=== PATIENT | female | born 1935 | race Caucasian/White ===

== ENCOUNTER 2020-12-09 06:00 | Outpatient (RCR) | payer MEDICARE, OTHER, SELFPAY | END 2020-12-18 23:59 | disposition home or self-care (01) | LOC: GOT 06:00 | PROVIDERS: PCP Nurse Practitioner; Referring Provider Podiatrist Foot & Ankle Surgery; Visit Provider Podiatrist Foot & Ankle Surgery | DX: I89.0 Lymphedema, not elsewhere classified (principal) | CPT/HCPCS: 97140; 97166 ==

== ENCOUNTER 2020-12-19 06:00 | Outpatient (RCR) | payer MEDICARE, OTHER, SELFPAY | END 2021-01-18 23:59 | disposition home or self-care (01) | LOC: GOT 06:00 | PROVIDERS: PCP Nurse Practitioner; Visit Provider Podiatrist Foot & Ankle Surgery | DX: I89.0 Lymphedema, not elsewhere classified (principal) | CPT/HCPCS: 97140 ==

== ENCOUNTER → 2024-05-21 13:39 | Outpatient (BNVA) | payer MEDICARE, SELFPAY | PROVIDERS: PCP Nurse Practitioner; Visit Provider Nurse Practitioner Family | DX: R30.0 Dysuria (principal) | CPT/HCPCS: 81000; 87086 ==

== ENCOUNTER → 2024-07-11 11:30 | Outpatient (BNVA) | payer MEDICARE, SELFPAY | PROVIDERS: PCP Nurse Practitioner; Visit Provider Nurse Practitioner Family | DX: Z51.89 Encounter for other specified aftercare (principal) | CPT/HCPCS: 80053; 85025; 87070 ==

== ENCOUNTER → 2024-07-13 08:50 | Outpatient (BNVA) | payer MEDICARE, SELFPAY | PROVIDERS: PCP Nurse Practitioner; Visit Provider Thoracic Surgery (Cardiothoracic Vascular Surgery) | DX: I96 Gangrene, not elsewhere classified (principal); L89.154 Pressure ulcer of sacral region, stage 4 | CPT/HCPCS: 11043; 99203; A6212 ==

== ENCOUNTER → 2024-07-20 10:24 | Outpatient (BNVA) | payer MEDICARE, SELFPAY | PROVIDERS: PCP Nurse Practitioner; Visit Provider Thoracic Surgery (Cardiothoracic Vascular Surgery) | DX: I96 Gangrene, not elsewhere classified (principal); L89.154 Pressure ulcer of sacral region, stage 4; I25.10 Atherosclerotic heart disease of native coronary artery without angina pectoris; Z79.899 Other long term (current) drug therapy | CPT/HCPCS: 11043; 81000; 87086; A6212 ==

== ENCOUNTER → 2024-07-26 08:54 | Outpatient (BNVA) | payer MEDICARE, SELFPAY | PROVIDERS: PCP Nurse Practitioner; Visit Provider Thoracic Surgery (Cardiothoracic Vascular Surgery) | DX: I96 Gangrene, not elsewhere classified (principal); L89.154 Pressure ulcer of sacral region, stage 4 | CPT/HCPCS: 11043; A6213 ==

== ENCOUNTER → 2024-08-10 08:50 | Outpatient (BNVA) | payer MEDICARE, SELFPAY | PROVIDERS: PCP Nurse Practitioner; Visit Provider Nurse Practitioner Family | DX: S31.000A Unspecified open wound of lower back and pelvis without penetration into retroperitoneum, initial encounter (principal); X58.XXXA Exposure to other specified factors, initial encounter | CPT/HCPCS: 87070; 87075; 87077; 87184; 87205 ==

== ENCOUNTER → 2024-09-12 11:25 | Outpatient (BNVA) | payer MEDICARE, SELFPAY | PROVIDERS: PCP Nurse Practitioner; Visit Provider Family Medicine | DX: N32.0 Bladder-neck obstruction (principal); N13.4 Hydroureter; N13.30 Unspecified hydronephrosis; N30.00 Acute cystitis without hematuria | CPT/HCPCS: 81000; 87086 ==

== ENCOUNTER 2024-09-14 08:21 | Inpatient (IN) | payer MEDICARE, SELFPAY ==
--- OUTSIDE RECORDS SUMMARY | 2013-04-03 02:04 | XMS_ITS | Continuity of Care Document ---
Author Organization [facility] Address [address] [place] [address] Phone Care Team Providers Care Architectural Renderer Name Role Phone Ede Bedoya MD Unavailable Unavailable Allergies, Adverse Reactions, Alerts Substance Reaction Status Criticality No Known Drug Allergies Active No I nformation Medications Medication Instructions Dosage Effective Dates (start - stop) Status Comments atenolol 25 mg Tab take 1 tablet (25MG) by oral route every day 25 MG - Active nifedipine ER 30 mg 24 hr Tab take 1 tablet (30MG) by oral route every day 30 MG - Active clonidine 0.1 mg tablet take 1 tablet (0.1MG) by oral route every day at bedtime - Active lorazepam 0.5 mg Tab take 1 Tablet (0.5MG) by oral route 3 times every day as needed 0.5 MG - Active Tylenol-Codeine #3 300 mg-30 mg Tab take 1 tablet by oral route every 6 hours as needed - Active aspirin 81 mg Tab take 1 tablet (81MG) by oral route every day 81 MG - Active Calcium 600 + D(3) 600 mg-400 unit Tab Take 1 tablet twice aday. - Active atenolol 25 mg Tab take 1 tablet (25MG) by oral route every day 25 MG - No Longer Active Procedures Procedure Date OFFICE/OUTPATIENT VISIT, EST OFFICE/OUTPATIENT VISIT, EST OFFICE/OUTPATIENT VISIT, EST URINALYSIS, AUTO, W/O SCOPE OFFICE/OUTPATIENT VISIT, EST PNEUMOCOCCAL VACCINE OFFICE/OUTPATIENT VISIT, EST OFFICE/OUTPATIENT VISIT, EST OFFICE/OUTPATIENT VISIT, EST OFFICE/OUTPATIENT VISIT, EST OFFICE/OUTPATIENT VISIT, EST OFFICE/OUTPATIENT VISIT, EST OFFICE/OUTPATIENT VISIT, EST OFFICE/OUTPATIENT VISIT, EST OFFICE/OUTPATIENT VISIT, EST BIOPSY OF UTERUS LINING OFFICE/OUTPATIENT VISIT, EST OFFICE/OUTPATIENT VISIT, EST OFFICE/OUTPATIENT VISIT, EST OFFICE/OUTPATIENT VISIT, EST BIOPSY OF UTERUS LINING OFFICE/OUTPATIENT VISIT, EST OFFICE/OUTPATIENT VISIT, EST OFFICE/OUTPATIENT VISIT, EST OFFICE/OUTPATIENT VISIT, EST OFFICE/OUTPATIENT VISIT, EST OFFICE/OUTPATIENT VISIT, EST OFFICE/OUTPATIENT VISIT, EST Advance Directives Directive Yes / No Effective Date File Name No Information Encounters Encounter Description Practice Location Reason(s) For Visit Diagnoses Date Provider Providers Copied on Encounter [facility], [address] [place] [address], [facility], tel:[phone] [facility] No Information 4 Elke Mera. [address] [place] [address], [facility], . tel:[phone] [facility], [address] [place] [address], [address] [place] [address] tel:[phone] [facility] No Information 2 3 Elke Mera. [address] [place] [address], [address] [place] [address]. tel:[phone] [facility], [address] [place] [address], [facility], tel:[phone] [facility] No Information 3 Elke Mera. [address] [place] [address], [facility], . tel:[phone] OFFICE/OUTPA TIENT VISIT, EST [facility], [address] [place], [place] [address], [facility], tel:[phone] [facility] night sweats (chief complaint)polyu ryan (chief complaint) PolyuriaNight sweats 3 Elke Mera. [address] [place] [address], [facility], [place]. tel:[phone] OFFICE/OUTPA TIENT VISIT, EST [facility], [address] [place] [address], [facility], [place] tel:[phone] [facility] Leg edema (chief complaint)Follo w-up with UTI infection (chief complaint) UTI (lower urinary tract infection)Hype rtension, UnspecifiedEde maKidney stones 3 Elke Mera. [address] [place] [address], [facility], [place]. tel:[phone] OFFICE/OUTPA TIENT VISIT, EST [facility], [address] [place], [place] [address], [facility], [place] tel:[phone] [facility] urinary frequency (chief complaint) Dysuria Fe 3 Elke Mera. [address] [place] [address], [facility], [place]. tel:[phone] OFFICE/OUTPA TIENT VISIT, EST [facility], [address] [place], [place] [address]n [place], [place], [facility], [place] tel:[phone] [facility] BP check (chief complaint)abdom inal pain (chief complaint). (chief complaint) Hypertension, Unspecified 3 Elke Mera. [address] [place] [address], [facility], [place]. tel:[phone] [facility], [address] [place], [place] [address] [place], [place], [facility], [place] tel:[phone] [facility] No Information 3 Elke Mera. [address] [place] [address], [facility], [place]. tel:[phone] OFFICE/OUTPA TIENT VISIT, EST [facility], [address] [place], [place] [address], [facility], [place] tel:[phone] [facility] preop exam for GBx (chief complaint) Preoperative examinationCho lelithiasis 2 Elke Mera. [address] [place] [address], [facility], [place]. tel:[phone] OFFICE/OUTPA TIENT VISIT, EST [facility], [address] [place] [address], [facility], [place] tel:[phone] [facility] axillary karen cyst infected? (chief complaint) Sebaceous cystAnxiety Disorder NOS 2-201 2 Elke Mera. [address] [place] [address], [facility], [place]. tel:[phone] [facility], [address] [place] [address], [facility], [place] tel:[phone] [facility] Abnormal finding on mammography 2 Elke Mera. [address] [place] [address], [facility], [place]. tel:[phone] OFFICE/OUTPA TIENT VISIT, EST [facility], [address] [place] [address], [facility], [place] tel:[phone] [facility] BP check (chief complaint)PE (chief complaint) Hypertension, UnspecifiedPul monary EmbolusSkin lesion of face 0 2 Elke Mera. [address] [place] [address], [facility], [place]. tel:[phone] OFFICE/OUTPA TIENT VISIT, EST [facility], [address] [place], [place] [address], [address], [place] tel:[phone] [facility] hypertension f/u (chief complaint)diarr hea (chief complaint)recen t ED visit and subsequent brief hospitalization (chief complaint) Chest pain 2 Elke Mera. [address] [place] [address], [facility], . tel:[phone] OFFICE/OUTPA TIENT VISIT, EST [facility], [address] [place], [place] [address]mary [place], [facility], [place] tel:[phone] [facility] nerves (chief complaint)gas (chief complaint)nevus on neck itching (chief complaint) Hypertension, UnspecifiedAnx ietyPulmonary EmbolusSeborrh eic keratosis 2 Elke Mera. [address] [place] [address], [facility], [place]. tel:[phone] OFFICE/OUTPA TIENT VISIT, EST [facility], [address] [place] [address], [facility], [place] tel:[phone] [facility] No Information 1 Elke Mera. [address] [place] [address], [facility], . tel:[phone] OFFICE/OUTPA TIENT VISIT, EST [facility], [address] [place], [place] [address], [place], [facility], [place] tel:[phone] [facility] No Information 1 Elke Mera. [address] [place] [address], [facility], [place]. tel:[phone] OFFICE/OUTPA TIENT VISIT, EST [facility], [address] [place], [place] [address]ffen [place], [facility], [place] tel:[phone] [facility] No Information 1 Kaley Pacheco. [facility], [address], [place], [place], [facility], [place]. tel: [phone] OFFICE/OUTPA TIENT VISIT, EST [facility], [address], [place], [place], [facility], [place] tel:[phone] [facility] No Information 1 Kaley Pacheco. [facility], [address], [place], [facility], [place]. tel: [phone] OFFICE/OUTPA TIENT VISIT, EST [facility], [address], [place], [facility], [place] tel:[phone] [facility] No Information 1 Elke Mera. [address] [place] [address], [facility], . tel: [phone] OFFICE/OUTPA TIENT VISIT, EST [facility], [place], [facility], [place] tel:[phone] [facility] No Information 1 Elke Mera. [address] [place] [address], [facility], [place]. tel: [phone] OFFICE/OUTPA TIENT VISIT, EST [facility], [facility] [address] [place], [facility], [place] tel:[phone] [facility] No Information 1 Ebenezer Cox. [address] [place] [address], [facility], [place]. tel: [phone] [facility], [address] [place], [facility], [place] tel:[phone] [facility] No Information 1 Elke Mera. [address] [place] [address], [facility], [place]. tel: [phone] OFFICE/OUTPA TIENT VISIT, EST [facility], [address] [place], [place] [address]mary [place], [facility], [place] tel: [phone] [facility] No Information Fe-0 9 1 Ebenezer Cox. [address] [place] [address], [facility], . tel: [phone] OFFICE/OUTPA TIENT VISIT, EST [facility], [address] [place], [place] [address], [facility], [place] tel: [phone] [facility] No Information Jan-0 4201 0 Elke Mera. [address] [place] [address], [facility], . tel: [phone] OFFICE/OUTPA TIENT VISIT, EST [facility], [address] [place] [address], [facility], tel: [phone] [facility] No Information Dec-0 7201 0 Elke Mera. [address] [place] [address], [facility], [place]. tel: [phone] OFFICE/OUTPA TIENT VISIT, EST [facility], [address] [place], [place] [address], [facility], [place] tel: [phone] [facility] No Information Nov-0 9 0 Elke Mera. [address] [place] [address], [facility], . tel: [phone] OFFICE/OUTPA TIENT VISIT, EST [facility], [address] [place], [place] [address], [facility], [place] tel: [phone] [facility] No Information 2 6 0 Elke Mera. [address] [place] [address], [facility], . tel: [phone] OFFICE/OUTPA TIENT VISIT, EST [facility], [address] [place], [place] [address]aliy[place], [facility], [place] tel:[phone] [facility] No Information 0 Elke Ede. [address] [place] [address], [address] [place] [address]. tel: [phone] OFFICE/OUTPA TIENT VISIT, EST [facility], [address] [place] [address], [address] [place] [address] tel:[phone] [facility] No Information 0 Elke Mera. [address] [place] [address], [facility], . tel: [phone] OFFICE/OUTPA TIENT VISIT, EST [facility], [address] [place] [address], [facility], tel:[phone] [facility] No Information 0 9 Elke Mera. [address] [place] [address], [address] [place] [address]. tel: [phone] Family History Family Member Type Diagnosis Age At Onset No Information Immunizations Vaccine Date Status Comments Pneumo (2 yrs or older)(PPV) administered Source: New Immunization Record Payers Payer name Insurance type Covered green party ID Authoralkoa andrew(s) [facility] [place] [id number] Social History Type Description Quantity Date Captured Comments Sex Female Smoking Status No Information Chief Complaint And Reason For Visit No Information Reason For Referral Reason For Referral No Information Plan Of Treatment Date Type Action Status Goal DEXA Scan. Due on 3 due Goal Td vaccine. Due on 14 due Goal Sigmoidoscopy. Due on due Goal Colonoscopy. Due on 013 due Goal Influenza vaccine. Due on due Goal Mammogram. Due on 3 due Goal FOBT. Due on due Goal Lipid Panel. Due on 013 due Goal GRIP BOSS exam. Due on due Referral Referred To: [facility] [id number] Ordered: Referral: [facility] [id number]. Consult. ordered Referral Ordered: Referral: [facility] urology clinic. Consult. ordered Referral Ordered: MAMMOGRAM, ONE BREAST R ordered Referral Ordered: Referral: [facility]. ordered History Of Present Illness Encounter Date Complaint History Of Prese nt Illness No Information Functional Status Date Functional Assessmen t No Information Instructions Date Instruction Additional Infor mation No Information Assessments Type Assessment Date No Information Patient Care Teams Name Effective Dates (start - stop) Status Members No Information
--- OUTSIDE RECORDS SUMMARY | 2023-05-24 06:00 | XMS_ITS ---
Author Organization [facility] Address [address] [place] [address] Care Team Providers Care Presidential Helicopter Crew Chief Name Role Phone Brenden Dominguez Primary Care Provider BRENDEN DOMINGUEZ Unavailable Unavailable REASON FOR VISIT Annual Wellness Visit Encounters Encounter Location Date Provider Diagnosis [address] [place] [address] 05/24/2023 Brenden Dominguez Plan Of Treatment No Information Progress Notes * Judy APPLE MDOB: [birth year] (88 yo F)Acc No.[id number]:05/24/2023 Progress Note Patient: Judy VENEGAS Provider: Elena Dominguez MD :1935 A ge:87 Y S ex:Female Date:05/24/2023 Address:[address] [place], [place] [id number] Subjective: * Chief Complaints: * 1 . Annual Wellness Visit. * Active Problem List Z85.3 History of breast ca ncer in female Modified On:05/18/2022/U Status:confirmed I10 Essential hypertensi on Modified On:07/14/2022/U Status:confirmed E04.1 Thyroid nodule Modified On:05/18/2022/U Status:confirmed Z86.010 History of adenomato us polyp of colon Modified On:05/18/2022/U Status:confirmed E78.2 Mixed hyperlipidemia Modified On:05/18/2022/U Status:confirmed K57.10 Diverticulosis of sm all intestine without perforation or abscess without bleeding Modified On:07/14/2022/U Status:confirmed Z90.12 Hx of left mastectom y Modified On:05/19/2022/U Status:confirmed R18.8 Other ascites Modified On:06/29/2022U Status:confirmed E11.65 Type 2 diabetes mekhi itus with hyperglycemia, without long-term current use of insulin Modified On:06/15/2022/U Status:confirmed I87.2 Stasis dermatitis of both legs Modified On:08/31/2022U Status:confirmed R60.0 Bilateral lower extr emity edema Modified On:08/31/2022U Status:confirmed * Medical History: * Ocular Surgical History: Objective: * Vitals: Assessment: Plan: * Treatment: * Billing Information: * Visit Code: * Procedure Codes: Care Plan Details* * Electronic signature of Estrella Dominguez MD on 09/14/2024 at 08:27 AM CDT Sign off status: Pending * Provider: Elena Dominguez MD Date: 0 05/24/2023 Generated for Deric lin/Castillo/Sannaitting on: 0 09/14/2024 08:27 AM CDT
[2024-09-14] VITALS (49 sets, daily range): BP systolic 92–116; BP diastolic 50–88; PULSE 63–97; RESP 12–33; TEMP 36.7–36.8; O2SAT 93–100; BMI 25.4; BMI 19.8
--- OUTSIDE RECORDS SUMMARY | 2024-09-14 08:27 | XMS_ITS | Patient Health Record ---
Author Organization [facility] Address [address] [place] [address] Care Team Providers Care Dairy Bacteriologist Name Role Phone Brenden Dominguez Primary Care Provider BRENDEN DOMINGUEZ Unavailable Unavailable Allergies Allergen (clinical drug ingredient) Drug/Non Drug Allergy documented on EMR Reaction Allergy Type Onset Date Status No Known Drug Allergy Unknown Drug Allergy Active Reason For Referral No Information Medications Medication SIG (Take, Route, Frequency, Duration) Notes Start Date End Date Status Vitamin C 500 MG 4 capsules Orally On ce a day Active Biotin 5 MG 1 capsule Orally Onc e a day Active Timolol Hemihydrate 0.25 % 1 drop into affected eye Ophthalmic Once a day Active Atorvastatin Calcium 40 MG TAKE ONE TABLET BY MOUTH ONCE DAILY Active Vitamin B Complex - as directed Orally Active Vitamin D3 25 MCG (1000 UT) 1 tablet Orally Once a day Active Bactrim 400-80 MG 1 tablet Orally Once a day Not-Taking Pantoprazole Sodium 40 MG 1 tablet Orall y Once a day for 30 day(s) 06/18/2021 Not-Taking Furosemide 40 MG 1 tablet Orally twic e a day for 90 days 08/03/2022 Active Aspirin 81 MG 1 tablet Orally Once a day Active Atenolol 25 MG 1 tablet Orally Once a day for 14 days Active Immunizations Vaccine Route Administration Date Status Comme nts Influenza (whole), CPT 12039 Inactive Unknown 12/20/2015 Administered Influenza (whole), CPT 33024 Inactive Unknown 12/19/2017 Administered Influenza (whole), CPT 20369 Inactive Unknown 12/27/2018 Administered Pneumovax 23 Unknown 12/20/2011 Administered Prevnar 20 IM Intramuscular 05/18/2022 Administered [id number] Social History Tobacco Use: Social History Observation Description Date Details (start date - stop date) Former Smoker NA - NA xTobacco Use/Smoking Question Answer Notes Are you a former smoker How long has it been since you last smoked? > 10 years Alcohol Screen (Audit-C) Question Answer Notes Did you have a drink containing alcohol in the p ast year? No Points 0 Interpretation Negative Tobacco use other than smoking: Question Answer Notes Are you an other tobacco user? No Advance Care Planning Question Answer Notes Advance care planning Patient douglas s completed, copy requested. PHQ-9 Question Answer Notes Little interest or pleasure in doing things Not at all Feeling down, depressed, or hopeless Not at all Trouble falling or staying asleep, or sleeping t oo much More than half the days Feeling tired or having little energy Several da ys Poor appetite or overeating Several days Feeling bad about yourself, or that you are a failure, or have let yourself or your family down Not at all Trouble concentrating on thi ngs, such as reading the newspaper or watching television Not at all Moving or speaking so slowly that other people could have noticed. Or the opposite ? being so fidgety or restless that you have been moving around a lot more than usual Not at all Thoughts that you would be b kamilah off , or of hurting yourself in some way Not at all Total Score 4 Interpretation Minimal Depression Problems Problem Type SNOMED Code ICD Code Onset Dates Problem Status W/U Status Risk Notes Problem 712330221 Mixed hyperlipidemia (E78.2) Active confirmed Problem Diverticulosis of small intestine (1592203) Diverticulosis of small intestine without perforation or abscess without bleeding (K57.10) Active confirmed Problem Ascites (117751261) Other ascites (R18.8) Active confirmed Problem 72911513 Essential hypertension (I10) Active confirmed Problem 690900382 Thyroid nodule (E04.1) Active confirmed Problem 40858958 Type 2 diabetes mellitus with hyperglycemia, without long-term current use of insulin (E11.65) Active confirmed Problem 017284484 Hx of left mastectomy (Z90.12) Active confirmed Problem 54276543 Stasis dermatiti s of both legs (I87.2) Active confirmed Problem 790799951 History of breas t cancer in female (Z85.3) Active confirmed Problem 011747564 Bilateral lower extremity edema (R60.0) Active confirmed Problem 032046234 History of adenomatous polyp of colon (Z86.010) Active confirmed Plan Of Treatment Pending Test Test Name Order Date Basic Metabolic Panel (BMP) 15001 2021 CBC w\ Auto Diff 39719 05/04/2021 Hepatic Function Panel 93954 05/04/2021 CRP [id number] 05/04/2021 Insurance Providers Payer Name Payer Address Payer Phone Subscriber Number Group Number Insured Name Patient Relationship to Insured Coverage Start Date Coverage End Date NE Medicare [address] [place] [phone] [id number] Judy Villanueva Self - patient is the insured [facility] Medicare Advantage PPO [address] [address] [place] [address] [phone] [id number] Judy Villanueva Self - patient is the insured Medical (General) History Medical History History ICD Code Problem:At risk for falls (finding) , St atus :: Active Problem:Diabetes mellitus Problem:Hypertensive disorde r, systemic arterial (disorder) , Status :: Active Problem:Obesity (disorder) , Status :: A ctive hyperlipidemia Breast cancer , left Surgical History Surgery Date(Month/Year) CEIOLI both eyes coronary artery stent 2009 mastectomy left cholecystectomy appendectomy Hospitalization History Reason Date(Month/Year) banner shingle flare 03/2022 [facility] - lump in throat 01/05/2019
--- OUTSIDE RECORDS SUMMARY | 2024-09-14 08:28 | XMS_ITS | Clinical Summary ---
Author Organization [facility] Address [address] Reece: Epic Prelude ADT [place] [address] Care Team Providers Care Size Cutter Name Role Phone Unavailable Primary Care Provider Unavailabl e Allergies No known active allergies Medications atenoloL (TENORMIN) 25 mg tablet 01/08/2021 Active NIFEdipine (ADALAT CC) 30 mg Extended Release tablet 01/08/2021 Acti ve atorvastatin (LIPITOR) 40 mg tablet 02/03/2021 Active aspirin (ECOTRIN EC) 81 mg Tablet, Delayed Release (E.C.) Take 81 mg by mouth daily. Active atenoloL (TENORMIN) 25 mg tablet 01/03/2019 Active timoloL maleate (TIMOPTIC) 0.5% solution 12/08/2018 Active NIFEdipine (PROCARDIA XL) 30 mg Extended Release 24 hour tablet 01/03/2019 Active atorvastatin (LIPITOR) 40 mg tablet 12/26/2018 Active Active Problems Problem Noted Date Diagnosed Date Vitreous degeneration, bilateral 02/03/2021 Nonexudative age-related mac ular degeneration, left eye, intermediate dry stage 02/03/2021 Exudative age-related macula r degeneration of right eye with active choroidal neovascularization 02/03/2021 Family History Medical History Relation Name Comments Cancer Brother No Known Problems Father Diabetes Mother Hypertension Mother Amblyopia Neg Hx Blindness Neg Hx Cataract Neg Hx Corneal Dystrophies Neg Hx Detachment/Tears Neg Hx Fuchs' dystrophy Neg Hx Glaucoma Neg Hx Keratoconus Neg Hx Macular Degen Neg Hx Strabismus Neg Hx Stroke Neg Hx Thyroid Disease Neg Hx Relation Name Status Comments Brother Father Mother Social History Tobacco Use Types Packs/Day Years Used Date Smoking Tobacco: Former Cigarettes Smokeless Tobacco: Never Alcohol Use Standard Drinks/Week Comments Never 0 (1 standard drink = 0.6 oz pur e alcohol) Comments Unknown Sex and Gender Information Value Date Recorded Sex Assigned at Not on file Legal Sex Female 10:18 PM M[employer]ED [employer]AD[employer] Gender Identity Not on file Sexual Orientation Not on file Last Filed Vital Signs Vital Sign Reading Time Taken Comments Blood Pressure 138/79 01/12/2019 1:09 PM CDT Pulse 60 01/12/2019 1:09 PM CDT Temperature - - Respiratory Rate - - Oxygen Saturation - - Inhaled Oxygen Concentration - - Weight 74.8 kg (165 lb) 01/12/2019 1:09 PM CDT Height 154.9 cm (5' 1 ) 01/12/2019 1:09 PM CDT Body Mass Index 31.18 01/12/2019 1:09 PM CDT Plan of Treatment Health Maintenance Due Date Last Done Comments DTAP/TDAP/TD VACCINES (1 - Tdap) 1954 PNEUMOCOCCAL VACCINE 50+ YEARS (1 of 1 - PCV) 10/20/18 85 ZOSTER VACCINE (1 of 2) 1984 OSTEOPOROSIS SCREENING 10/21/1999 RSV VACCINE (60+ or ) (1 - 1-dose 75+ series) 2009 INFLUENZA VACCINE (#1) 2023 Insurance MEDICARE PART A AND B
--- OUTSIDE RECORDS SUMMARY | 2024-09-14 08:31 | XMS_ITS | Clinical Summary ---
Author Organization [facility] Address [address] [place] [address] Care Team Providers Care Check Out Cashier Name Role Phone Unavailable Primary Care Provider Unavailabl e Allergies No known active allergies Medications atenolol (TENORMIN) 25 mg tablet 01/03/2019 Active atorvastatin (LIPITOR) 40 mg tablet 12/26/2018 Active timolol maleate (TIMOPTIC) 0.5% solution 12/08/2018 Active NIFEdipine (PROCARDIA XL) 30 mg Extended Release 24 hour tablet 01/03/2019 Active Active Problems No known active problems Family History Medical History Relation Name Comments No Known Problems Father No Known Problems Mother Relation Name Status Comments Father Mother Social History Tobacco Use Types Packs/Day Years Used Date Smoking Tobacco: Former Smokeless Tobacco: Never Alcohol Use Standard Drinks/Week Comments Never 0 (1 standard drink = 0.6 oz pur e alcohol) Comments Unknown Sex and Gender Information Value Date Recorded Sex Assigned at Not on file Legal Sex Female 2:36 PM CDT Gender Identity Not on file Sexual Orientation [...] 2023 Insurance MEDICARE PART A AND B [employer]
--- OUTSIDE RECORDS SUMMARY | 2024-09-14 08:31 | XMS_ITS | Patient Health Record ---
Author Organization [facility] Address [address] [address] Care Team Providers Care Produce Inspector Name Role Phone Vane Torres Unavailable [phone] Allergies No Known Allergies Reason For Referral No Information Medications Medication SIG (Take, Route, Frequency, Duration) Notes Start Date End Date Status NIFEdipine ER 30 MG 1 tablet on an empty stomach Orally Once a day Active Atorvastatin Calcium 40 MG 1 tablet Orally Once a day Active Pantoprazole Sodium 40 MG 1 tablet Orally Once a day Active Atenolol 25 MG 1 tablet Orally Once a day Active Gabapentin 100 MG 1 capsule as directed Orally Once a day; Duration: 90 days week #1: 1 capsule daily; week #2, if needed can increase to 2capsules daily; week 3: if needed, can increase to 3capsules daily for pain control 04/28/2022 Active traMADol HCl 50 MG 1 tablet as needed for pain Orally three times daily; Duration: 15 days 04/28/2022 Active Social History Tobacco Use: Social History Observation Description Date Details (start date - stop date) Never Smoker NA - NA Sex Assigned At : Social History Observation Description Sex Assigned At Female Household Question Answer Notes Number of adults in household: 1 Tobacco Use/Smoking Question Answer Notes Tobacco use: nonsmoker Section Notes: lives alone Problems Problem Type SNOMED Code ICD Code Onset Dates Problem Status W/U Status Risk Notes Problem 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) Active confirmed Problem Varicose veins o f left lower extremity with inflammation (I83.12) Active confirmed Problem 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) Muscle wasting and atrophy, not elsewhere classified, multiple sites (M62.59) Active confirmed Problem Primary hypertension (32434220) Primary hypertension (I10) Active confirmed Problem Bilateral lower extremity edema (742052969) Bilateral lower extremity edema (R60.0) Active confirmed Problem Coronary arteriosclerosis (43650259) ASCVD (arteriosclerotic cardiovascular disease) (I25.10) Active confirmed Plan Of Treatment Future Test Test Name Order Date HEMOGLOBIN A1c (496) 01/26/2022 Insurance Providers Payer Name Payer Address Payer Phone Subscriber Number Group Number Insured Name Patient Relationship to Insured Coverage Start Date Coverage End Date [facility] [id number] [place] [address] [place] [address] [id number] Judy Villanueva Self - patient is the insured [employer] Insurance [address] [place] [address] [id number] Judy Villanueva Self - patient is the insured Medical (General) History Medical History History ICD Code hypertension pre-dm hyperlipidemia frequent falls macular degeneration, right, wet. gets i nj q5 weeks, [facility] breast cancer, left mastectomy kidney stones Surgical History Surgery Date(Month/Year) appendectomy heart stents 2004 vein procedure, both legs, dr blanc 2014 history of DC Hospitalization History Reason Date(Month/Year) None in past 30 days
--- NOTE | 2024-09-14 09:05 | W.ED.RECABL ---
HPI - Recheck/Abnormal Lab/Rx General: Chief Complaint: Recheck/Abnormal Lab/Rx Stated Complaint: labs Time Seen by Provider: 09/14/24 08:44 History of Present Illness: 88-year-old female with a history of diastolic CHF, bladder outlet obstruction with chronic indwelling Stone catheter, coronary artery disease, hypertension and hyperlipidemia who presents emergency room from the shelter with concerns for hyponatremia. She reports she has had some nausea and vomiting. Some epigastric pain when she vomits. She has swelling in her legs and she says she thinks this is worse than usual. She says recently she has increased her water intake and decreased her salt intake. She is also complaining of some malaise Related Data Home Medications ?Medication ?Instructions ?Recorded ?Confirmed aspirin 81 mg tablet,delayed 81 mg PO DAILY 06/30/23 09/09/24 release atorvastatin 40 mg tablet 40 mg PO DAILY 06/30/23 09/09/24 [id number] carb-vit K 1 tab PO DAILY 06/30/23 09/09/24 18 mg iron-400 mcg-500 mg tablet nitroglycerin 0.4 mg sublingual See Rx Instructions .Route .COMPLEX 06/30/23 09/09/24 tablet ondansetron 4 mg disintegrating 4 mg PO Q6H PRN Nausea 06/30/23 09/09/24 tablet spironolactone 25 mg tablet 25 mg PO BID 06/30/23 09/09/24 timolol maleate 0.5 % eye drops 1 drp ophthalmic (eye) QAM 06/30/23 09/09/24 tramadol 50 mg tablet 50 mg PO Q6H PRN Pain 06/30/23 09/09/24 acetaminophen 325 mg capsule 325 mg PO QID PRN 05/29/24 09/09/24 bisacodyl 10 mg rectal suppository 10 mg TN DAILY PRN 05/29/24 09/09/24 lactulose 10 gram/15 mL oral 15 ml PO DAILY 05/29/24 09/09/24 solution metoclopramide HCl 5 mg tablet 5 mg PO DAILY 05/29/24 09/09/24 pantoprazole 40 mg granules 40 mg PO DAILY 05/29/24 09/09/24 delayed-release for susp in packet sennosides 8.6 mg-docusate sodium 1 tab-cap PO DAILY 05/29/24 09/09/24 50 mg tablet (Senna-Time S) tizanidine 2 mg capsule 2 mg PO Q8H PRN 05/29/24 09/09/24 atenolol 25 mg tablet 12.5 mg PO DAILY 08/18/24 09/09/24 Previous Rx's ?Medication ?Instructions ?Recorded sodium hypochlorite 0.125 % 1 applic topical BID wet to dry 07/13/24 solution (Dakin's Solution) dressing changes #473 mL Allergies Allergy/AdvReac Type Severity Reaction Status Date / Time No Known Allergies Allergy Verified 06/08/24 21:25 Review of Systems Narrative: Constitutional symptoms: Negative except as documented in HPI. Skin symptoms: Negative except as documented in HPI. Eye symptoms: Negative except as documented in HPI. ENMT symptoms: Negative except as documented in HPI. Respiratory symptoms: Negative except as documented in HPI. Cardiovascular symptoms: Negative except as documented in HPI. Gastrointestinal symptoms: Negative except as documented in HPI. Genitourinary symptoms: Negative except as documented in HPI. Musculoskeletal symptoms: Negative except as documented in HPI. Neurologic symptoms: Negative except as documented in HPI. Psychiatric symptoms: Negative except as documented in HPI. Endocrine symptoms: Negative except as documented in HPI. PFSH ED PFSH: Social History Smoking and tobacco/nicotine status: former use of tobacco/nicotine Physical Exam Narrative: EXAM NARRATIVE: General: Alert, no acute distress. Skin: Warm, dry. Head: Normocephalic, atraumatic. Neck: Supple, trachea midline. Eye: Extraocular movements are intact. Ears, nose, mouth and throat: Dry oral mucosa. Cardiovascular: Regular, Normal peripheral perfusion. Respiratory: Lungs are clear to auscultation, respirations are non-labored, breath sounds are equal, Symmetrical chest wall expansion. Bilateral lower extremity edema and venous stasis changes. Gastrointestinal: Soft, Nontender, Non distended Musculoskeletal: Normal ROM, no deformity. Neurological: Alert and oriented, No focal neurological deficit observed. Psychiatric: Cooperative, appropriate mood & affect. Course Vital Signs: Vital signs: Vital Signs Temperature 98.2 F 09/14/24 08:30 Pulse Rate 83 09/14/24 08:30 Respiratory Rate 18 09/14/24 08:30 Blood Pressure 112/88 09/14/24 08:30 Pulse Oximetry 100 09/14/24 08:30 Oxygen Delivery Me thod Room Air 09/14/24 08:30 MDM - Recheck/Abnormal Lab/Rx Medical Decision Making Medical decision making: Differential diagnosis for this patient with nausea and vomiting including but not limited to and based on the above HPI, review of systems and physical exam: Urinary tract infection. Appendicitis. Cholecystitis. Colitis. small bowel obstruction. crohn's flare. pancreatitis. gastritis. peptic ulcer. cyclic vomiting. Viral illness. Influenza. COVID. Orders placed to evaluate differential diagnosis based on the above differential, HPI and physical exam Lab Review: Laboratory results were reviewed and interpreted by myself the emergency room physician. Mild leukocytosis with a white count of 11.9. Hemoglobin stable at 10.2. BUN and creatinine slightly below her baseline at 24 and 0.9. Potassium is mildly elevated at 6. I reviewed the patient's medical record. Reexamination: Patient remained stable. No increased work of breathing. No altered mental status. No focal motor deficits. Consultation: I spoke with Dr. Peck about the patient who agrees to admission. Difficult to discern whether this is secondary to fluid overload or to dehydration. Patient claims the swelling in her legs is worse than usual. Her BUN and creatinine are slightly lower than they normally are. These would indicate fluid overload. However she also reports vomiting and poor oral intake so again difficult to decide. Assessment and plan: Hyponatremia -I discussed the patient with the hospitalist on-call who is admitting the patient. - Discussed findings and plan with patient. Answered any questions. - All laboratory values were reviewed and interpreted personally by myself, the ER physician - All imaging was reviewed and interpreted personally by myself, the ER physician. - Evaluation and treatment of this problem were appropriate in the emergency setting Lab Data 09/14/24 08:58 09/14/24 08:58 Laboratory Results WBC 11.89 10^3/uL (3.29-11.43) H 09/14/24 08:58 RBC 3.25 10^6/uL (3.85-5.65) L 09/14/24 08:58 Hgb 10.20 g/dL (11.27-16.99) L 09/14/24 08:58 Hct 32.3 % (36-47) L 09/14/24 08:58 MCV 99.4 fl (85-98) H 09/14/24 08:58 MCH 31.4 pg (27-33) 09/14/24 08:58 MCHC 31.6 g/dL (30-55) 09/14/24 08:58 RDW 16.3 % (12.1-15.1) H 09/14/24 08:58 Plt Count 318 10^3/cmm (157-399) 09/14/24 08:58 MPV 8.1 fL (7.4-10.4) 09/14/24 08:58 Neut % (Auto) 56.1 % 09/14/24 08:58 Lymph % (Auto) 35.7 % 09/14/24 08:58 Mitchell % (Auto) 5.6 % 09/14/24 08:58 Eos % (Auto) 1.3 % 09/14/24 08:58 Baso % (Auto) 0.6 % 09/14/24 08:58 Neut # (Auto) 6.67 10^3/uL (1.8-7.7) 09/14/24 08:58 Lymph # (Auto) 4.3 10^3/uL (0.8-4.8) 09/14/24 08:58 Mitchell # (Auto) 0.7 10^3/uL (0.2-0.9) 09/14/24 08:58 Eos # (Auto) 0.2 10^3/uL (0.0-0.8) 09/14/24 08:58 Baso # (Auto) 0.1 10^3/uL (0.0-0.1) 09/14/24 08:58 Nucleated RBC % (auto) 0 % 09/14/24 08:58 Nucleated RBCs # 0.0 /100WBC 09/14/24 08:58 Sodium 121 mmol/L (136-145) L 09/14/24 08:58 Potassium 6.0 mmol/L (3.5-5.1) H 09/14/24 08:58 Chloride 89 mmol/L (98-107) L 09/14/24 08:58 Carbon Dioxide 21 mmol/L (22-29) L 09/14/24 08:58 Anion Gap 17.0 (5-19) 09/14/24 08:58 BUN 24 mg/dL (8-23) H 09/14/24 08:58 Creatinine 0.9 mg/dL (0.5-0.9) 09/14/24 08:58 GFR Calculation Not Reportable 09/14/24 08:58 Glucose 115 mg/dL (65-115) 09/14/24 08:58 Calculated Osmolality 257 mOsm/kg (285-295) L 09/14/24 08:58 Calcium 9.3 mg/dL (8.5-10.5) 09/14/24 08:58 Total Bilirubin 0.4 mg/dL (0.15-1.2) 09/14/24 08:58 AST 25 U/L (0-32) 09/14/24 08:58 ALT 26 U/L (0-33) 09/14/24 08:58 Alkaline Phosphatase 128 U/L (35-105) H 09/14/24 08:58 Total Protein 7.7 g/dL (6.6-8.7) 09/14/24 08:58 Albumin 2.8 g/dL (3.5-5.2) L 09/14/24 08:58 Globulin 4.9 g/dL (1.3-4.6) H 09/14/24 08:58 Lipase 54 U/L (13-60) 09/14/24 08:58 No radiology studies performed this visit Discharge Plan Discharge Patient Disposition: Admitted As Inpatient Clinical Impression: Hyponatremia Condition: Stable Coding Level of Care Code ED Metal Model Maker for Lisa Flores
[2024-09-14 09:24] LABS: Hematocrit 32.3 % (36-47); Hemoglobin 10.20 g/dL (11.27-16.99); Mean Corpuscular HGB Conc 31.6 g/dL (30-55); Mean Corpuscular Hemoglobin 31.4 pg (27-33); Mean Corpuscular Volume 99.4 fl (85-98); Nucleated Red Blood Cells % 0 %; Platelet Count 318 10^3/cmm (157-399); Red Blood Count 3.25 10^6/uL (3.85-5.65); White Blood Count 11.89 10^3/uL (3.29-11.43)
[2024-09-14 09:38] LABS: Alanine Aminotransferase 26 U/L (0-33); Albumin Level 2.8 g/dL (3.5-5.2); Alkaline Phosphatase 128 U/L (35-105); Anion Gap 17.0 (5-19); Aspartate Amino Transferase 25 U/L (0-32); Blood Urea Nitrogen 24 mg/dL (8-23); Calcium 9.3 mg/dL (8.5-10.5); Carbon Dioxide 21 mmol/L (22-29); Chloride 89 mmol/L (98-107); Creatinine Clr Calc Pharmacy 35.5724; Globulin 4.9 g/dL (1.3-4.6); Glucose 115 mg/dL (65-115); Osmolality Calculated 257 mOsm/kg (285-295); Potassium 6.0 mmol/L (3.5-5.1); Sodium 121 mmol/L (136-145); Total Protein 7.7 g/dL (6.6-8.7)
[2024-09-14 09:48] LABS: Lipase 54 U/L (13-60)
--- NOTE | 2024-09-14 11:39 | PC.PHAR ---
Pt is from [facility]
--- NOTE | 2024-09-14 13:36 | PC.NURSE ---
pt given lunch tray
--- NOTE | 2024-09-14 16:52 | PC.NURSE ---
received from er via stretcher at 1630.report received.sr on monitor.pt knows who she is but not year/date.oriented to room environment.bed alarm placed on.instructed to notify staff for any pain,sob,dizziness...or for any concerns at all.pt verb understanding .will freq reiterate.
--- NOTE | 2024-09-14 17:43 | PM.HP ---
Providers/Chief Complaint Admitting Physician: Wali Choudhary Primary Care Provider: DIANE Enamorado Chief Complaint: labs History of Present Illness Judy Villanueva is a 88 year old patient with a history of diastolic congestive heart failure, urinary bladder outlet obstruction, chronic indwelling Stone catheter, coronary artery disease, hypertension, and hyperlipidemia, presenting from a shelter to the emergency department due to concerns of hyponatremia. The patient has experienced nausea, vomiting, and epigastric pain with vomiting over the past 2-3 days. There has been increased water intake and decreased salt intake reported. The patient has had poor oral intake and leg swelling was noted in the ED. She reports a little shortness of breath with exertion but not at rest, and is generally bedbound, using a wheelchair for mobility. No recent fever, chills, throat pain, sneezing, or coughing. No diarrhea, but requires laxatives occasionally; bowel movements occur one to three times per day. Last oral intake was pudding earlier in the day; dinner the previous night may have been soup. No burning with urination, but there was blood in the urine yesterday. No rashes reported. No trouble peeing or blood in stool. The patient is not allergic to any medications. Code status discussed; patient wishes for full resuscitation in congruence with her children's wishes. Review of Systems Const: Reports: change in appetite; Denies: fever(s), chills, body aches or malaise ENMT: Denies: throat pain Card: Reports: edema (mild); Denies: chest pain, pre-syncope or dyspnea on exertion Resp: Denies: dyspnea, productive cough, change in phlegm color or hemoptysis GI: Reports: nausea and vomiting; Denies: abdominal pain, diarrhea, constipation, hematochezia or melena : Denies: flank pain, urinary frequency or hematuria Musc: Denies: back pain, joint swelling or joint redness Skin/Breast: Denies: rash or new lesions Neuro: Denies: headache(s) or confusion Medications/Allergies Home Medications ?Medication ?Instructions ?Recorded ?Confirmed ?Last Taken ?Type aspirin 81 mg tablet,delayed 81 mg PO DAILY 06/30/23 09/14/24 09/13/24 History release atorvastatin 40 mg tablet 40 mg PO DAILY 06/30/23 09/14/24 09/13/24 History nitroglycerin 0.4 mg sublingual See Rx Instructions .Route .COMPLEX 06/30/23 09/14/24 Unknown History tablet ondansetron 4 mg disintegrating 4 - 8 mg PO Q4H PRN Severe 06/30/23 09/14/24 09/12/24 History tablet nausea/vomiting timolol maleate 0.5 % eye drops 1 drp ophthalmic (eye) QAM 06/30/23 09/14/24 09/13/24 History tramadol 50 mg tablet 50 - 100 mg PO Q6H PRN Pain 06/30/23 09/14/24 09/14/24 History acetaminophen 325 mg capsule 325 mg PO QID PRN Pain 05/29/24 09/14/24 Unknown History bisacodyl 10 mg rectal suppository 10 mg MI DAILY PRN Constipation 05/29/24 09/14/24 Unknown History lactulose 10 gram/15 mL oral 30 ml PO DAILY PRN Constipation 05/29/24 09/14/24 06/09/24 History solution metoclopramide HCl 5 mg tablet 5 mg PO DAILY 05/29/24 09/14/24 09/14/24 History pantoprazole 40 mg granules 40 mg PO DAILY 05/29/24 09/14/24 09/13/24 History delayed-release for susp in packet tizanidine 2 mg capsule 2 mg PO Q8H PRN Muscle Spasm 05/29/24 09/14/24 09/14/24 History sodium hypochlorite 0.125 % 1 applic topical BID wet to dry 07/13/24 09/14/24 08/12/24 Rx solution (Dakin's Solution) dressing changes #473 mL atenolol 25 mg tablet 12.5 mg PO DAILY 08/18/24 09/14/24 09/13/24 History amino acids-protein hydrolysate 15 See Rx Instructions .Route .COMPLEX 09/14/24 09/14/24 09/13/24 History gram-101 kcal/30 mL oral liquid bisacodyl 5 mg tablet 20 mg PO DAILY PRN Constipation 09/14/24 09/14/24 Unknown History magnesium hydroxide 400 mg/5 mL 30 ml PO DAILY PRN Constipation 09/14/24 09/14/24 09/09/24 History oral suspension (Milk of Magnesia) sodium phosphates 19 gram-7 118 ml MI DAILY PRN Constipation 09/14/24 09/14/24 Unknown History gram/118 mL enema (Fleet Enema) spironolactone 50 mg tablet 50 mg PO BID 09/14/24 09/14/24 09/13/24 History Allergies Allergy/AdvReac Type Severity Reaction Status Date / Time No Known Allergies Allergy Verified 06/08/24 21:25 PFSH Acute PFSH: Medical History residential resident Sacral wound Bladder outlet obstruction Bilateral hydronephrosis Hyperlipidemia Essential hypertension CAD (coronary artery disease) Diastolic CHF Social History Smoking and tobacco/nicotine status: former use of tobacco/nicotine Vitals/I&O/Wt Last Vital Signs Temp 98.2 F 09/14/24 08:30 Pulse 97 09/14/24 16:12 Resp 14 09/14/24 13:25 BP 93/54 09/14/24 16:12 Pulse Ox 93 09/14/24 16:12 O2 Del Method Room Air 09/14/24 16:37 Weight last 48 hrs Weight 47.684 kg Weight 61.235 kg Physical Exam Const: COMMON NORMALS: patient oriented x3 and alert GENERAL APPEARANCE: cooperative and frail appearing ORIENTATION/CONSCIOUSNESS: Yes awake HENMT: COMMON NORMALS: oropharynx normal Neck/C-Spine: COMMON NORMALS: no JVD Resp: COMMON NORMALS: normal respiratory effort and clear to auscultation bilaterally AUSCULTATION: clear to auscultation bilaterally Cardio: COMMON NORMALS: no JVD, regular rhythm, S1 normal heart sound present, S2 normal heart sound present and No murmurs present (Cardio) RHYTHM: regular rhythm HEART SOUNDS: S1 normal heart sound present and S2 normal heart sound present GI: COMMON NORMALS: Normal to inspection, nondistended, normoactive bowel sounds present, Soft to palpation and non-tender PALPATION: Yes Soft to palpation Extremity: GENERAL: Yes edema (Trace) Neuro: COMMON NORMALS: patient oriented x3 and moves all extremities SENSORIUM/ORIENTATION: Yes alert Skin: OTHER: 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 Patient presented with low sodium (121) after increased water intake and decreased salt intake. No headache or vision changes. No acute neurological symptoms. The etiology appears multifactorial, likely related to poor oral intake, increased free water intake, and possibly medications. Labs show mild leukocytosis, mild anemia, and mild renal impairment. The provider plans to recheck sodium and consider administration of concentrated sodium solution or salt tablets, with caution to avoid rapid correction. 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 Reviewed vitals, CBC, CMP, requested TSH, reviewed lipase, reviewed ED provider note, discussed with ED provider. - Recheck sodium level reviewed, 122 -Add urea tablet. Trial of regular diet. Monitor risk of CHF decompensation. - Repeat sodium level. -In case of additional vomiting and not tolerating oral intake, consider gentle hydration. - Consider administration of concentrated sodium solution with careful monitoring to avoid rapid correction. With poor oral intake, appears to have (2) Nausea and vomiting: Nausea and vomiting : Patient has had nausea and vomiting for 2-3 days, associated with poor oral intake and epigastric pain. No evidence of GI bleeding or diarrhea. Home medications include PRN antiemetics. Without further vomiting so far. -Trial of regular diet. -Check viral panel - Monitor symptoms and oral intake. - Continue PRN antiemetics as needed. Plan Poor oral intake : Patient reports poor oral intake over the past few days, with minimal food consumption. This may contribute to hyponatremia and general debility. - Monitor oral intake and encourage nutrition as tolerated. -Regular diet as tolerating Hyperkalemia: Low potassium diet. Hold spironolactone. Lower extremity edema : Mild lower extremity edema noted, with history of CHF. No acute shortness of breath at rest. Edema may be related to underlying heart failure or immobility. Edema is mild. Otherwise does not appear to be in exacerbation of congestive heart failure. - Monitor for progression of edema and signs of heart failure with risk with sodium replacement. Hematuria : Patient reports blood in urine yesterday. Has chronic indwelling Stone catheter and history of urinary bladder outlet obstruction. No dysuria or fever reported. - UA - Monitor for ongoing hematuria and signs of infection. Pressure ulcer : Pressure sore on the bottom, managed with dry dressing and sodium hypochlorite. Dressing changes ongoing per shelter protocol. - Continue wound care with dry dressing and sodium hypochlorite as per protocol. Diastolic congestive heart failure : History of diastolic CHF. No acute decompensation noted. Mild edema present. No current shortness of breath at rest. - Continue current heart failure management. Monitor for signs of decompensation. Coronary artery disease : History of coronary artery disease. No acute chest pain or symptoms reported. - Continue current cardiac medications. Hold spironolactone for now. PDMP PDMP Reviewed: Not Reviewed Attestations Medical Necessity Statement*: Place in observation for additional assessment management of severe hyponatremia after nausea and vomiting. Diagnoses Hyponatremia E87.1 Nausea and vomiting R11.2
[2024-09-14 18:44] LABS: Sodium 122 mmol/L (136-145)
[2024-09-14 19:04] LABS: Thyroid Stimulating Hormone 2.12 uIU/mL (0.27-4.20)
[2024-09-14 22:36] LABS: Glucose Urine UA Negative (Normal); Nitrate Urine Positive (Negative); Specific Gravity, Urine 1.010 (1.005-1.030)
[2024-09-14 22:41] LABS: Add Urine Microscopic? YES
[2024-09-14 23:00] LABS: Anion Gap 15.8 (5-19); Blood Urea Nitrogen 28 mg/dL (8-23); Calcium 8.9 mg/dL (8.5-10.5); Carbon Dioxide 22 mmol/L (22-29); Chloride 90 mmol/L (98-107); Creatinine Clr Calc Pharmacy 31.9463; Glucose 160 mg/dL (65-115); Osmolality Calculated 263 mOsm/kg (285-295); Potassium 5.8 mmol/L (3.5-5.1); Sodium 122 mmol/L (136-145)
[2024-09-14 23:01] LABS: UA Slide Review UA Slide Review Perf
[2024-09-15] VITALS: BP 100/51; PULSE 71; RESP 21; TEMP 36.7; O2SAT 98
[2024-09-15 00:26] LABS: Coronavirus 229E,HKU1,NL63,OC4 Not Detected (NOT DETECT); Parainfluenza Virus Type 1 Not Detected (NOT DETECT); Parainfluenza Virus Type 2 Not Detected (NOT DETECT); Parainfluenza Virus Type 3 Not Detected (NOT DETECT); Parainfluenza Virus Type 4 Not Detected (NOT DETECT); SARS-COV-2 Not Detected (NOT DETECT)
[2024-09-15 04:00] VITALS: BP 120/59; PULSE 65; RESP 17; TEMP 36.9; O2SAT 98
[2024-09-15 05:35] LABS: Hematocrit 28.5 % (36-47); Hemoglobin 9.30 g/dL (11.27-16.99); Mean Corpuscular HGB Conc 32.6 g/dL (30-55); Mean Corpuscular Hemoglobin 31.3 pg (27-33); Mean Corpuscular Volume 96.0 fl (85-98); Nucleated Red Blood Cells % 0 %; Platelet Count 279 10^3/cmm (157-399); Red Blood Count 2.97 10^6/uL (3.85-5.65); White Blood Count 8.02 10^3/uL (3.29-11.43)
[2024-09-15 06:00] LABS: Alanine Aminotransferase 23 U/L (0-33); Albumin Level 2.6 g/dL (3.5-5.2); Alkaline Phosphatase 114 U/L (35-105); Anion Gap 18.3 (5-19); Aspartate Amino Transferase 21 U/L (0-32); Blood Urea Nitrogen 58 mg/dL (8-23); Calcium 8.9 mg/dL (8.5-10.5); Carbon Dioxide 20 mmol/L (22-29); Chloride 92 mmol/L (98-107); Creatinine Clr Calc Pharmacy 35.8405; Globulin 4.3 g/dL (1.3-4.6); Glucose 88 mg/dL (65-115); Osmolality Calculated 274 mOsm/kg (285-295); Potassium 6.3 mmol/L (3.5-5.1); Sodium 124 mmol/L (136-145); Total Protein 6.9 g/dL (6.6-8.7)
[2024-09-15 08:00] VITALS: BP 105/63; PULSE 79; RESP 24; TEMP 36.3; O2SAT 98
--- NOTE | 2024-09-15 08:26 | CTR_ITS ---
PROCEDURE INFORMATION: Exam: CT Abdomen And Pelvis Without Contrast Exam date and time: 09/15/2024 9:05 AM Age: 88 years old Clinical indication: Abdominal pain; Flank; Other: Delfin; Additional info: UTI, bilateral flank pain TECHNIQUE: Imaging protocol: Computed tomography of the abdomen and pelvis without contrast. Radiation optimization: All CT scans at this facility use at least one of these dose optimization techniques: automated exposure control; mA and/or kV adjustment per patient size (includes targeted exams where dose is matched to clinical indication); or iterative reconstruction. COMPARISON: CR XR chest 1V portable 06/30/2023 7:05 AM RADIATION DOSE METRICS: Total DLP (mGy-cm): 323.53 FINDINGS: Liver: No acute abnormality or suspicious hepatic mass. Gallbladder and biliary ducts: Prior cholecystectomy. No biliary duct dilation. Pancreas: No acute abnormality or obvious pancreatic duct dilation. Spleen: Normal size; no suspicious masses. Adrenal glands: Probable left adrenal hyperplasia. Right adrenal gland unremarkable. Kidneys and ureters: Unenhanced kidneys show no hydronephrosis. There are small renal lesions bilaterally that are too small to characterize with certainty. A subcentimeter hyperdense lesion projecting off the lateral cortex of the right kidney is compatible with hemorrhagic cyst. Small calcifications associated with right ureter near the pelvic brim likely relate to gonadal vein phleboliths. No definite ureteral calculus identified. Stomach and bowel: There is a large amount of food within the stomach. There is abundant stool throughout the colon without definite rectal fecal impaction. Appendix: No evidence of appendicitis. Intraperitoneal space: No free intraperitoneal air or significant ascites. Vasculature: Diffuse aortoiliac atherosclerotic calcifications. Abdominal aorta has normal caliber. Lymph nodes: No enlarged lymph nodes. Urinary bladder: Urinary bladder is decompressed by Stone catheter limiting assessment of bladder wall. Reproductive: Visualized portions show no obvious acute abnormality. Bones/joints: Severe chronic right hip arthropathy with loss of joint space, marginal osteophytes, and multiple subchondral cysts or erosions. Severe chronic multilevel lumbar facet arthropathy is also noted. Soft tissues: Unremarkable. CT/CT abdomen pelvis wo con [id number] IMPRESSION: 1. No evidence of upper urinary tract obstruction or definite urinary tract calculus. 2. There are multiple findings that are incidental and/or nonacute; please refer to the above report for details. COMMENTS: Consistent with the [employer]'s Incidental Findings Committee white paper (J Am Ross Radiol 2018): Any incidental renal lesion less than 1 cm or classified as too small to characterize, or any incidental cystic renal lesion characterized as simple-appearing, is likely benign. No follow-up imaging is recommended for these lesions per consensus recommendations based on imaging criteria.
[2024-09-15] MEDS: insulin regular-human 100 units/1 mL 10 UNIT IVP (09:21)
[2024-09-15] MEDS: timolol 0.5% Op Soln 5 mL Btl 1 DROP EYE-BOTH (09:21)
[2024-09-15] MEDS: calcium gluconate 0.9% NaCL 1 GM/50 ML PREMIX IV (09:23)
[2024-09-15] MEDS: sodium hypochlorite 0.125% Btl 473 mL 1 APPLIC TOPICAL ×2 (10:27→21:47)
[2024-09-15] MEDS: piperacillin-tazobactam 3.375 GM in sodium chloride 0.9% (plus) 50 ML IV ×2 (10:27→18:31)
[2024-09-15 10:38] LABS: Blood Urea Nitrogen 52 mg/dL (8-23); Calcium 8.8 mg/dL (8.5-10.5); Carbon Dioxide 20 mmol/L (22-29); Chloride 90 mmol/L (98-107); Creatinine Clr Calc Pharmacy 28.6724; Glucose 219 mg/dL (65-115); NT Pro B Type Natriuretic Pept 935 pg/mL (0-450); Osmolality Calculated 271 mOsm/kg (285-295); Sodium 120 mmol/L (136-145)
[2024-09-15 10:45] LABS: Anion Gap 15.9 (5-19); Potassium 5.9 mmol/L (3.5-5.1)
[2024-09-15 12:00] VITALS: BP 97/61; PULSE 89; RESP 24; TEMP 36.4; O2SAT 97
--- NOTE | 2024-09-15 14:23 | P.PN_ITS ---
Subjective 2 Subjective: - Patient was seen this morning - She is alert to person, to place, time she follows commands - Has no complaints, no abdominal pain, no nausea, no vomiting - No fevers, no chills Vitals/I&O/Wt Last Vital Signs Temp 97.5 F L 09/15/24 12:00 Pulse 89 09/15/24 12:00 Resp 24 H 09/15/24 12:00 BP 97/61 09/15/24 12:00 Pulse Ox 97 09/15/24 12:00 O2 Del Method Room Air 09/15/24 12:00 09/14/24 09/15/24 09/15/24 22:59 06:59 14:59 Intake Total 120 / 120 120 / 240 300 / 300 Output Total 450 / 450 75 / 525 Balance -330 / -330 45 / -285 300 / 300 Weight last 48 hrs Weight 47.355 kg Weight 47.684 kg Weight 61.235 kg Physical Exam 2 Const: COMMON NORMALS: no acute distress ORIENTATION/CONSCIOUSNESS: Yes awake, Yes oriented to person and Yes oriented to place; not oriented to time Resp: COMMON NORMALS: normal respiratory effort, No retractions, No use of accessory muscles and clear to auscultation bilaterally AUSCULTATION: clear to auscultation bilaterally Cardio: COMMON NORMALS: regular rate, regular rhythm, S1 normal heart sound present and S2 normal heart sound present RATE: regular rate RHYTHM: r egular rhythm HEART SOUNDS: S1 normal heart sound present and S2 normal heart sound present GI: COMMON NORMALS: Normal to inspection, nondistended, normoactive bowel sounds present and non-tender Extremity: COMMON NORMALS: no pedal edema Neuro: SENSORIUM/ORIENTATION: Yes oriented to person, Yes oriented to place and No oriented to time Data 09/15/24 05:13 09/15/24 09:50 A&P Assessment and plan (1) Hyponatremia: (2) Nausea and vomiting: (3) Complicated UTI (urinary tract infection): (4) Sacral wound: Plan Hyponatremia -Concerns for hypovolemic hyponatremia -no headache, no blurry vision, no nausea, vomiting Plan -IV hydration on hold today due to concerns for CHF, will consider starting based on clinical progress - Monitor serum sodium every 4 hours Complicated urinary tract infection -IV zosyn - CT scan abdomen pelvis Hyperkalemia: -Potassium 5.9 - Calcium gluconate, insulin, D10 - Recheck serum potassium this afternoon Poor oral intake : Hyperkalemia: Lower extremity edema : - Monitor Hematuria : - Has chronic indwelling Stone catheter and history of urinary bladder outlet obstruction - CT scan Deep tissue injury, sacral wound - Continue wound care Diastolic congestive heart failure : - Monitor for fluid overload Coronary artery disease : PDMP PDMP Reviewed: Not Reviewed Attestations 2 Medical Necessity Statement*: Patient requires hospitalization for hyponatremia, UTI, hypokalemia, poor oral intake Diagnoses Hyponatremia E87.1 Nausea and vomiting R11.2 Complicated UTI (urinary tract infection) N39.0 Sacral wound S31.000A
[2024-09-15 14:36] LABS: Anion Gap 17.3 (5-19); Blood Urea Nitrogen 72 mg/dL (8-23); Calcium 10.5 mg/dL (8.5-10.5); Carbon Dioxide 22 mmol/L (22-29); Chloride 93 mmol/L (98-107); Creatinine Clr Calc Pharmacy 31.8582; Glucose 107 mg/dL (65-115); Osmolality Calculated 286 mOsm/kg (285-295); Potassium 5.3 mmol/L (3.5-5.1); Sodium 127 mmol/L (136-145)
[2024-09-15 16:00] VITALS: BP 101/58; PULSE 82; RESP 20; TEMP 36.4; O2SAT 99
[2024-09-15 19:13] LABS: Blood Urea Nitrogen 75 mg/dL (8-23); Calcium 9.3 mg/dL (8.5-10.5); Carbon Dioxide 21 mmol/L (22-29); Chloride 93 mmol/L (98-107); Creatinine Clr Calc Pharmacy 31.8582; Glucose 117 mg/dL (65-115); Osmolality Calculated 285 mOsm/kg (285-295); Sodium 126 mmol/L (136-145)
[2024-09-15 19:16] LABS: Anion Gap 17.9 (5-19); Potassium 5.9 mmol/L (3.5-5.1)
[2024-09-15 20:00] VITALS: BP 97/57; PULSE 97; RESP 37; TEMP 36.4; O2SAT 98
[2024-09-15 22:13] LABS: Anion Gap 17.3 (5-19); Blood Urea Nitrogen 67 mg/dL (8-23); Calcium 9.1 mg/dL (8.5-10.5); Carbon Dioxide 22 mmol/L (22-29); Chloride 92 mmol/L (98-107); Creatinine Clr Calc Pharmacy 31.8582; Glucose 177 mg/dL (65-115); Osmolality Calculated 286 mOsm/kg (285-295); Potassium 5.3 mmol/L (3.5-5.1); Sodium 126 mmol/L (136-145)
[2024-09-16] VITALS (11 sets, daily range): BP systolic 92–119; BP diastolic 52–70; PULSE 78–107; RESP 18–43; TEMP 36.1–36.9; O2SAT 96–100
[2024-09-16] MEDS: oxyCODONE-APAP 5-325 mg Tablet 1 TAB PO ×4 (01:31→20:42)
[2024-09-16] MEDS: piperacillin-tazobactam 3.375 GM in sodium chloride 0.9% (plus) 50 ML IV ×3 (01:32→17:57)
[2024-09-16 02:57] LABS: Anion Gap 14.9 (5-19); Blood Urea Nitrogen 65 mg/dL (8-23); Calcium 8.7 mg/dL (8.5-10.5); Carbon Dioxide 20 mmol/L (22-29); Chloride 96 mmol/L (98-107); Creatinine Clr Calc Pharmacy 35.8405; Glucose 147 mg/dL (65-115); Osmolality Calculated 283 mOsm/kg (285-295); Potassium 4.9 mmol/L (3.5-5.1); Sodium 126 mmol/L (136-145)
[2024-09-16 06:21] LABS: Hematocrit 27.2 % (36-47); Hemoglobin 8.60 g/dL (11.27-16.99); Mean Corpuscular HGB Conc 31.6 g/dL (30-55); Mean Corpuscular Hemoglobin 30.9 pg (27-33); Mean Corpuscular Volume 97.8 fl (85-98); Nucleated Red Blood Cells % 0 %; Platelet Count 274 10^3/cmm (157-399); Red Blood Count 2.78 10^6/uL (3.85-5.65); White Blood Count 8.16 10^3/uL (3.29-11.43)
[2024-09-16] MEDS: timolol 0.5% Op Soln 5 mL Btl 1 DROP EYE-BOTH (06:31)
[2024-09-16 06:41] LABS: Alanine Aminotransferase 21 U/L (0-33); Albumin Level 2.4 g/dL (3.5-5.2); Alkaline Phosphatase 118 U/L (35-105); Anion Gap 15.2 (5-19); Aspartate Amino Transferase 17 U/L (0-32); Blood Urea Nitrogen 59 mg/dL (8-23); Calcium 8.6 mg/dL (8.5-10.5); Carbon Dioxide 22 mmol/L (22-29); Chloride 94 mmol/L (98-107); Creatinine Clr Calc Pharmacy 32.0402; Globulin 4.1 g/dL (1.3-4.6); Glucose 108 mg/dL (65-115); Osmolality Calculated 279 mOsm/kg (285-295); Potassium 5.2 mmol/L (3.5-5.1); Sodium 126 mmol/L (136-145); Total Protein 6.5 g/dL (6.6-8.7)
--- NOTE | 2024-09-16 07:51 | ECG_ITS ---
[facility]16 Pat Name: Judy Villanueva Department: Room: 107 Gender: Female Agency Director: : [id number] Requested By: Tim Huerta Order Number: [id number] Gladis MD: David Larios M.D. Measurements Intervals Mcintosh Rate: 74 P: 97 VA: 218 QRS: -55 QRSD: 83 T: 26 QT: 384 QTc: 428 Interpretive Statements SINUS RHYTHM WITH FIRST DEGREE AV BLOCK WITH OCCASIONAL SUPRAVENTRICULAR PREMATURE COMPLEXES POSSIBLE ANTERIOR MYOCARDIAL INFARCTION , PROBABLY OLD [30 ms Q WAVE IN V3/V4, OR R < 0.2 mV IN V4] INFERIOR MYOCARDIAL INFARCTION , PROBABLY OLD [40+ ms Q WAVE AND/OR ST/T ABNORMALITY IN II/aVF] No previous ECG available for comparison Electronically Signed On 09-20-2024 09:36:53 CDT by David Larios M.D. [email or web address]
--- NOTE | 2024-09-16 07:57 | PC.NURSE ---
Patient was in significant amount of pain, Dr Hemphill was notified and new orders placed.
[2024-09-16] MEDS: polyethylene glycol 3350 Pkt 17 gm PO (11:25)
[2024-09-16] MEDS: sodium hypochlorite 0.125% Btl 473 mL 1 APPLIC TOPICAL ×2 (11:25→22:08)
--- NOTE | 2024-09-16 13:06 | P.PN_ITS ---
Subjective 2 Subjective: Patient was seen this morning, currently alert to person, to place, not to time, she has no complaints overnight, did have episodes of bradycardia, does have poor appetite, Vitals/I&O/Wt Last Vital Signs Temp 96.9 F L 09/16/24 12:00 Pulse 81 09/16/24 12:00 Resp 20 H 09/16/24 12:00 BP 92/58 09/16/24 12:00 Pulse Ox 98 09/16/24 12:00 O2 Del Method Room Air 09/16/24 12:00 09/15/24 09/16/24 09/16/24 22:59 06:59 14:59 Intake Total 710 / 1060 170 / 1230 240 / 240 Output Total 1400 / 1400 400 / 1800 Balance -690 / -340 -230 / -570 240 / 240 Weight last 48 hrs Weight 48.035 kg Weight 47.355 kg Weight 47.684 kg Physical Exam 2 Const: COMMON NORMALS: no acute distress ORIENTATION/CONSCIOUSNESS: Yes awake, Yes oriented to person and Yes oriented to place; not oriented to time Resp: COMMON NORMALS: normal respiratory effort, No retractions, No use of accessory muscles and clear to auscultation bilaterally AUSCULTATION: clear to auscultation bilaterally Cardio: COMMON NORMALS: regular rate, regular rhythm, S1 normal heart sound present and S2 normal heart sound present RATE: regular rate RHYTHM: r egular rhythm HEART SOUNDS: S1 normal heart sound present and S2 normal heart sound present GI: COMMON NORMALS: Normal to inspection, nondistended, normoactive bowel sounds present and non-tender Extremity: COMMON NORMALS: no pedal edema Neuro: SENSORIUM/ORIENTATION: Yes oriented to person, Yes oriented to place and No oriented to time Psych: COMMON NORMALS: mental status grossly normal Data 09/16/24 05:42 09/16/24 05:42 Micro: Microbiology 09/14/24 22:20 Urine Culture - Preliminary Urine,Clean Catch Gram Negative Rods A&P Assessment and plan (1) Hyponatremia: (2) Nausea and vomiting: (3) Complicated UTI (urinary tract infection): (4) Sacral wound: Plan Hyponatremia up to 126 -Concerns for hypovolemic hyponatremia -no headache, no blurry vision, no nausea, vomiting Plan -IV hydration on hold today due to concerns for CHF, will consider starting based on clinical progress - Monitor serum sodium every 4 hours Complicated urinary tract infection -IV zosyn - CT scan abdomen pelvis no acute findings Hyperkalemia:, Resolving -Potassium 5.9, down to 5.2 - Status post calcium gluconate, insulin, D10 - Recheck serum potassium this afternoon Poor oral intake : Hyperkalemia: Lower extremity edema : - Monitor Hematuria : - Has chronic indwelling Stone catheter and history of urinary bladder outlet obstruction - CT scan no acute findings Deep tissue injury, sacral wound - Continue wound care Diastolic congestive heart failure : - Monitor for fluid overload Coronary artery disease : No chest pain Plan for today IV fluids as oral intake is poor persistent hyponatremia, UTI, IV Zosyn PDMP PDMP Reviewed: Not Reviewed Attestations 2 Medical Necessity Statement*: Patient requires hospitalization for dehydration requiring IV fluids hyponatremia, UTI Diagnoses Hyponatremia E87.1 Nausea and vomiting R11.2 Complicated UTI (urinary tract infection) N39.0 Sacral wound S31.000A
[2024-09-16 14:44] LABS: Anion Gap 16.2 (5-19); Blood Urea Nitrogen 61 mg/dL (8-23); Calcium 8.6 mg/dL (8.5-10.5); Carbon Dioxide 24 mmol/L (22-29); Chloride 95 mmol/L (98-107); Creatinine Clr Calc Pharmacy 32.0402; Glucose 131 mg/dL (65-115); Osmolality Calculated 291 mOsm/kg (285-295); Potassium 4.2 mmol/L (3.5-5.1); Sodium 131 mmol/L (136-145)
[2024-09-17] VITALS (12 sets, daily range): BP systolic 90–102; BP diastolic 50–57; PULSE 71–84; RESP 14–34; TEMP 36.4–36.7; O2SAT 95–99
[2024-09-17] MEDS: piperacillin-tazobactam 3.375 GM in sodium chloride 0.9% (plus) 50 ML IV ×3 (02:34→18:22)
[2024-09-17] MEDS: oxyCODONE-APAP 5-325 mg Tablet 1 TAB PO ×5 (02:38→23:24)
[2024-09-17 04:31] LABS: Hematocrit 26.1 % (36-47); Hemoglobin 8.10 g/dL (11.27-16.99); Mean Corpuscular HGB Conc 31.0 g/dL (30-55); Mean Corpuscular Hemoglobin 31.3 pg (27-33); Mean Corpuscular Volume 100.8 fl (85-98); Nucleated Red Blood Cells % 0 %; Platelet Count 213 10^3/cmm (157-399); Red Blood Count 2.59 10^6/uL (3.85-5.65); White Blood Count 5.93 10^3/uL (3.29-11.43)
[2024-09-17 04:50] LABS: Alanine Aminotransferase 19 U/L (0-33); Albumin Level 2.3 g/dL (3.5-5.2); Alkaline Phosphatase 108 U/L (35-105); Anion Gap 16.4 (5-19); Aspartate Amino Transferase 18 U/L (0-32); Blood Urea Nitrogen 66 mg/dL (8-23); Calcium 8.0 mg/dL (8.5-10.5); Carbon Dioxide 23 mmol/L (22-29); Chloride 101 mmol/L (98-107); Creatinine Clr Calc Pharmacy 32.0402; Globulin 3.7 g/dL (1.3-4.6); Glucose 105 mg/dL (65-115); Osmolality Calculated 301 mOsm/kg (285-295); Potassium 4.4 mmol/L (3.5-5.1); Sodium 136 mmol/L (136-145); Total Protein 6.0 g/dL (6.6-8.7)
[2024-09-17] MEDS: timolol 0.5% Op Soln 5 mL Btl 1 DROP EYE-BOTH (05:38)
--- NOTE | 2024-09-17 09:41 | PC.NURSE ---
Nurse asked patient if she would like her to redress her pressure injury at 0939 and patient stated that she would like to wait a while. Nurse will ask again in an hour. Patient very sleepy at this time.
[2024-09-17] MEDS: polyethylene glycol 3350 Pkt 17 gm PO (10:56)
--- NOTE | 2024-09-17 11:40 | PC.SOCIAL ---
IMM Update pg 2 of IMM updated and reviewed w/ patient. Copy provided and copy dated, initialed and placed in chart.
[2024-09-17] MEDS: sodium hypochlorite 0.125% Btl 473 mL 1 APPLIC TOPICAL ×2 (14:17→23:23)
--- NOTE | 2024-09-17 16:14 | P.PN_ITS ---
Subjective 2 Subjective: Patient was seen this morning, currently alert oriented x 2, following all commands she denies any fevers, chills, no cough does report generalized weakness, we discussed her anemia hemoglobin down to 8.1, will monitor Vitals/I&O/Wt Last Vital Signs Temp 97.7 F 09/17/24 15:31 Pulse 71 09/17/24 15:31 Resp 34 H 09/17/24 15:31 BP 101/52 09/17/24 15:31 Pulse Ox 97 09/17/24 15:31 O2 Del Method Room Air 09/17/24 07:19 09/17/24 09/17/24 09/17/24 06:59 14:59 22:59 Intake Total 1390.833 / 1390.833 Output Total 300 / 1150 Balance -300 / -560 1390.833 / 1390.833 Weight last 48 hrs Weight 52.481 kg Weight 48.035 kg Physical Exam 2 Const: COMMON NORMALS: no acute distress and patient oriented x3 Resp: COMMON NORMALS: normal respiratory effort, No retractions, No use of accessory muscles and clear to auscultation bilaterally AUSCULTATION: clear to auscultation bilaterally Cardio: COMMON NORMALS: regular rate, regular rhythm, S1 normal heart sound present and S2 normal heart sound present RATE: regular rate RHYTHM: r egular rhythm HEART SOUNDS: S1 normal heart sound present and S2 normal heart sound present GI: COMMON NORMALS: Normal to inspection, nondistended, normoactive bowel sounds present and non-tender Extremity: COMMON NORMALS: no pedal edema Neuro: COMMON NORMALS: patient oriented x3 Psych: COMMON NORMALS: mental status grossly normal Data 09/17/24 03:46 09/17/24 03:46 Micro: Microbiology 09/14/24 22:20 Urine Culture - Final Urine,Clean Catch Proteus mirabilis A&P Assessment and plan (1) Hyponatremia: (2) Nausea and vomiting: (3) Complicated UTI (urinary tract infection): (4) Sacral wound: Plan Hyponatremia up to 136 -Concerns for hypovolemic hyponatremia -no headache, no blurry vision, no nausea, vomiting Plan -IV hydration on hold today due to concerns for CHF, will consider starting based on clinical progress - Monitor serum sodium every 4 hours Acute on chronic anemia hemoglobin down to 8.1 - Recheck hemoglobin this afternoon - Iron studies, Hemoccult stool Complicated urinary tract infection -IV zosyn - CT scan abdomen pelvis no acute findings Hyperkalemia:, Resolving -Potassium 5.9, down to 5.2 - Status post calcium gluconate, insulin, D10 - Recheck serum potassium this afternoon Poor oral intake : Hyperkalemia: Lower extremity edema : - Monitor Hematuria : - Has chronic indwelling Stone catheter and history of urinary bladder outlet obstruction - CT scan no acute findings Deep tissue injury, sacral wound - Continue wound care Diastolic congestive heart failure : - Monitor for fluid overload Coronary artery disease : No chest pain Plan for today IV Zosyn, monitor hemoglobin, PDMP PDMP Reviewed: Not Reviewed Attestations 2 Medical Necessity Statement*: Patient requires hospitalization for hyponatremia, complicated UTI, hematuria Diagnoses Hyponatremia E87.1 Nausea and vomiting R11.2 Complicated UTI (urinary tract infection) N39.0 Sacral wound S31.000A
[2024-09-17 17:24] LABS: Ferritin 898 ng/mL (15-150); Iron 45 ug/dL (37-145); Total Iron Binding Capacity 158 mcg/dl; Unsaturated Iron Binding 113 ug/dL (112-347)
[2024-09-17 18:29] LABS: Hematocrit 25.7 % (36-47); Hemoglobin 7.90 g/dL (11.27-16.99); Mean Corpuscular HGB Conc 30.7 g/dL (30-55); Mean Corpuscular Hemoglobin 30.4 pg (27-33); Mean Corpuscular Volume 98.8 fl (85-98); Nucleated Red Blood Cells % 0 %; Platelet Count 209 10^3/cmm (157-399); Red Blood Count 2.60 10^6/uL (3.85-5.65); White Blood Count 5.32 10^3/uL (3.29-11.43)
[2024-09-18] VITALS (17 sets, daily range): BP systolic 91–116; BP diastolic 58–70; PULSE 72–102; RESP 14–26; TEMP 36.4–37.6; O2SAT 93–100
[2024-09-18] MEDS: piperacillin-tazobactam 3.375 GM in sodium chloride 0.9% (plus) 50 ML IV ×2 (02:10→09:07)
[2024-09-18 03:34] LABS: Hematocrit 24.5 % (36-47); Hemoglobin 7.40 g/dL (11.27-16.99); Mean Corpuscular HGB Conc 30.2 g/dL (30-55); Mean Corpuscular Hemoglobin 30.5 pg (27-33); Mean Corpuscular Volume 100.8 fl (85-98); Nucleated Red Blood Cells % 0 %; Platelet Count 171 10^3/cmm (157-399); Red Blood Count 2.43 10^6/uL (3.85-5.65); White Blood Count 4.45 10^3/uL (3.29-11.43)
[2024-09-18 04:06] LABS: Alanine Aminotransferase 21 U/L (0-33); Albumin Level 2.1 g/dL (3.5-5.2); Alkaline Phosphatase 105 U/L (35-105); Anion Gap 12.3 (5-19); Aspartate Amino Transferase 21 U/L (0-32); Blood Urea Nitrogen 41 mg/dL (8-23); Calcium 8.1 mg/dL (8.5-10.5); Carbon Dioxide 26 mmol/L (22-29); Chloride 103 mmol/L (98-107); Creatinine Clr Calc Pharmacy 37.3837; Globulin 3.4 g/dL (1.3-4.6); Glucose 88 mg/dL (65-115); Osmolality Calculated 294 mOsm/kg (285-295); Potassium 4.3 mmol/L (3.5-5.1); Sodium 137 mmol/L (136-145); Total Protein 5.5 g/dL (6.6-8.7)
--- NOTE | 2024-09-18 05:13 | PC.NURSE ---
Contacted the physician because the patients hemoglobin dropped from 8.1 to 7.4 since 1800 yesterday. No new orders recieved other than monitoring.
[2024-09-18] MEDS: timolol 0.5% Op Soln 5 mL Btl 1 DROP EYE-BOTH (05:38)
[2024-09-18] MEDS: pantoprazole 40 mg SDV IVP (08:58)
[2024-09-18] MEDS: sucralfate 1 gm/10 mL Oral Liq UDC PO ×2 (08:58→14:24)
[2024-09-18] MEDS: sodium hypochlorite 0.125% Btl 473 mL 1 APPLIC TOPICAL (09:08)
--- NOTE | 2024-09-18 11:19 | PM.DCS ---
Discharge Providers Date of Admission: 09/15/24 14:23 Date of Discharge: September 18, 2024 Attending Provider at Admission: Wali Choudhary Attending Provider at Discharge: Tim Huerta MD Primary Care Provider: DIANE Enamorado Diagnoses at Discharge Discharge Diagnosis (1) Hyponatremia: Status: Acute (2) Nausea and vomiting: Status: Acute (3) Complicated UTI (urinary tract infection): Status: Acute (4) Sacral wound: Status: Acute Reason for Visit Reason for Visit: labs Hospital Course Hospital Course This is a 88-year-old female with a past medical history of CHF, urinary bladder outlet obstruction, with chronic indwelling Guadalupe catheter, CAD, hypertension, hyperlipidemia who presents from longterm due to concerns for hyponatremia Patient was admitted to [facility] for hypovolemic hyponatremia, received urea tablets, IV fluids, overall serum sodium improved, serum sodium on discharge 137 For complicated urinary tract infection, she had a Guadalupe catheter in place, chronic, which was exchanged out, received broad-spectrum antibiotic therapy, urine cultures growing Proteus species. Will be discharged on p.o. antibiotics, with close follow-up with urology as outpatient, her Guadalupe catheter will have to be exchanged in a month Patient's hospitalization was complicated by hyperkalemia, likely the effect of spironolactone which was stopped on discharge For her deep tissue injury, sacral wounds, received wound care continue to follow-up with wound care at residential facility Acute on chronic anemia hemoglobin down to 7.4 status post 1 unit PRBC, no hemodynamic compromise no bloody or black stools, no active GI bleed. Will be discharged on Protonix, Carafate, instructions to hold aspirin. Recheck hemoglobin tomorrow, follow-up with general surgery in 2 weeks for consideration of EGD and colonoscopy. Acute encephalopathy secondary UTI, hyponatremia, on discharge she is alert to person, to place, not to time she follows commands, Physical Exam Const: COMMON NORMALS: no acute distress ORIENTATION/CONSCIOUSNESS: Yes awake, Yes oriented to person and Yes oriented to place; not oriented to time Resp: COMMON NORMALS: normal respiratory effort, No retractions, No use of accessory muscles and clear to auscultation bilaterally AUSCULTATION: clear to auscultation bilaterally Cardio: COMMON NORMALS: regular rate, regular rhythm, S1 normal heart sound present and S2 normal heart sound present RATE: regular rate RHYTHM: regular rhythm HEART SOUNDS: S1 normal heart sound present and S2 normal heart sound present GI: COMMON NORMALS: Normal to inspection, nondistended, normoactive bowel sounds present and non-tender Extremity: COMMON NORMALS: no pedal edema Neuro: SENSORIUM/ORIENTATION: Yes oriented to person, Yes oriented to place and No oriented to time Discharge Data Studies Completed and Pending Completed Studies During Hospitalization Category Date Time Status CT abdomen pelvis wo con [id number] Routine Cat Scan 09/15/24 08:26 Completed Pending at discharge Category Date Time Status Occult Blood Stool [Immunochemical Fecal OCB] Routine Lab 09/17/24 16:57 Uncollected Radiology Impressions Abdomen/Pelvis CT 09/15/24 08:26 IMPRESSION: 1. No evidence of upper urinary tract obstruction or definite urinary tract calculus. 2. There are multiple findings that are incidental and/or nonacute; please refer to the above report for details. COMMENTS: Consistent with the [employer]'s Incidental Findings Committee white paper (J Am Ross Radiol 2018): Any incidental renal lesion less than 1 cm or classified as too small to characterize, or any incidental cystic renal lesion characterized as simple-appearing, is likely benign. No follow-up imaging is recommended for these lesions per consensus recommendations based on imaging criteria. Laboratory Results WBC 4.45 10^3/uL (3.29-11.43) 09/18/24 02:58 RBC 2.43 10^6/uL (3.85-5.65) L 09/18/24 02:58 Hgb 7.40 g/dL (11.27-16.99) L 09/18/24 02:58 Hct 24.5 % (36-47) L 09/18/24 02:58 MCV 100.8 fl (85-98) H 09/18/24 02:58 MCH 30.5 pg (27-33) 09/18/24 02:58 MCHC 30.2 g/dL (30-55) 09/18/24 02:58 RDW 16.9 % (12.1-15.1) H 09/18/24 02:58 Plt Count 171 10^3/cmm (157-399) 09/18/24 02:58 MPV 7.9 fL (7.4-10.4) 09/18/24 02:58 Neut % (Auto) 52.6 % 09/18/24 02:58 Lymph % (Auto) 35.5 % 09/18/24 02:58 Milam % (Auto) 8.3 % 09/18/24 02:58 Eos % (Auto) 2.5 % 09/18/24 02:58 Baso % (Auto) 0.9 % 09/18/24 02:58 Neut # (Auto) 2.34 10^3/uL (1.8-7.7) 09/18/24 02:58 Lymph # (Auto) 1.6 10^3/uL (0.8-4.8) 09/18/24 02:58 Milam # (Auto) 0.4 10^3/uL (0.2-0.9) 09/18/24 02:58 Eos # (Auto) 0.1 10^3/uL (0.0-0.8) 09/18/24 02:58 Baso # (Auto) 0.0 10^3/uL (0.0-0.1) 09/18/24 02:58 Nucleated RBC % (auto) 0 % 09/18/24 02:58 Nucleated RBCs # 0.0 /100WBC 09/18/24 02:58 Sodium 137 mmol/L (136-145) 09/18/24 02:58 Potassium 4.3 mmol/L (3.5-5.1) 09/18/24 02:58 Chloride 103 mmol/L (98-107) 09/18/24 02:58 Carbon Dioxide 26 mmol/L (22-29) 09/18/24 02:58 Anion Gap 12.3 (5-19) 09/18/24 02:58 BUN 41 mg/dL (8-23) H 09/18/24 02:58 Creatinine 0.7 mg/dL (0.5-0.9) 09/18/24 02:58 GFR Calculation Not Reportable 09/18/24 02:58 Glucose 88 mg/dL (65-115) 09/18/24 02:58 Calculated Osmolality 294 mOsm/kg (285-295) 09/18/24 02:58 Calcium 8.1 mg/dL (8.5-10.5) L 09/18/24 02:58 Iron 45 ug/dL (37-145) 09/17/24 03:46 TIBC 158 mcg/dl 09/17/24 03:46 % Saturation 28.4 % (20-50) 09/17/24 03:46 Unsat Iron Binding 113 ug/dL (112-347) 09/17/24 03:46 Ferritin 898 ng/mL (15-150) H 09/17/24 03:46 Total Bilirubin 0.2 mg/dL (0.15-1.2) 09/18/24 02:58 AST 21 U/L (0-32) 09/18/24 02:58 ALT 21 U/L (0-33) 09/18/24 02:58 Alkaline Phosphatase 105 U/L (35-105) 09/18/24 02:58 NT-Pro-B Natriuret Pep 935 pg/mL (0-450) H 09/15/24 09:50 Total Protein 5.5 g/dL (6.6-8.7) L 09/18/24 02:58 Albumin 2.1 g/dL (3.5-5.2) L 09/18/24 02:58 Globulin 3.4 g/dL (1.3-4.6) 09/18/24 02:58 Lipase 54 U/L (13-60) 09/14/24 08:58 TSH 2.12 uIU/mL (0.27-4.20) 09/14/24 08:58 Urine Color Yellow (Yellow) 09/14/24 22:20 Urine Appearance Cloudy (CLEAR) A 09/14/24 22:20 Urine pH 8.5 (5-7) A 09/14/24 22:20 Ur Specific And[place] 1.010 (1.005-1.030) 09/14/24 22:20 Urine Protein 1+ (Negative) A 09/14/24 22:20 Urine Glucose (UA) Negative (Normal) 09/14/24 22:20 Urine Ketones Negative (Negative) 09/14/24 22:20 Urine Blood 3+ (Negative) A 09/14/24 22:20 Urine Nitrate Positive (Negative) A 09/14/24 22:20 Urine Bilirubin Negative (Negative) 09/14/24 22:20 Urine Urobilinogen 0.2 mg/dL (Negative) 09/14/24 22:20 Ur Leukocyte Esterase 3+ (Negative) A 09/14/24 22:20 Urine RBC 6-10 /hpf (0-2) 09/14/24 22:20 Urine WBC 51-100 /hpf (0-5) H 09/14/24 22:20 Ur Squamous Epith Cells 0-5 /hpf (0-5) 09/14/24 22:20 Triple Phos Crystals 5-10 /hpf H 09/14/24 22:20 Amorphous Sediment Not Reportable 09/14/24 22:20 Urine Bacteria 4+ /hpf (NONE) H 09/14/24 22:20 Hyaline Casts 14.06 /lpf 09/14/24 22:20 Adenovirus (PCR) Not detected (NOT DETECT) 09/14/24 22:20 C. pneumoniae DNA (PCR) Not detected (NOT DETECT) 09/14/24 22:20 Coronavirus 229E (PCR) Not detected (NOT DETECT) 09/14/24 22:20 Human Metapneumovir PCR Not detected (NOT DETECT) 09/14/24 22:20 Influenza A (H1) PCR Not detected (NOT DETECT) 09/14/24 22:20 Influ A (H1/09) PCR Not detected (NOT DETECT) 09/14/24 22:20 Influenza A (H3) PCR Not detected (NOT DETECT) 09/14/24 22:20 Influenza Type A (PCR) Not detected (NOT DETECT) 09/14/24 22:20 Influenza Type B (PCR) Not detected (NOT DETECT) 09/14/24 22:20 M. pneumoniae (PCR) Not detected (NOT DETECT) 09/14/24 22:20 Parainfluenza 1 (PCR) Not detected (NOT DETECT) 09/14/24 22:20 Parainfluenza 2 (PCR) Not detected (NOT DETECT) 09/14/24 22:20 Parainfluenza 3 (PCR) Not detected (NOT DETECT) 09/14/24 22:20 Parainfluenza 4 (PCR) Not detected (NOT DETECT) 09/14/24 22:20 RSV Type A (PCR) Not detected (NOT DETECT) 09/14/24 22:20 RSV Type B (PCR) Not detected (NOT DETECT) 09/14/24 22:20 Entero/Rhino (PCR) Not detected (NOT DETECT) 09/14/24 22:20 SARS-CoV-2 (PCR) Not detected (NOT DETECT) 09/14/24 22:20 Blood Type O Positive 09/18/24 08:47 Rho(D) Type Rh positive 09/18/24 08:47 Antibody Screen Negative 09/18/24 08:47 Crossmatch See Detail 09/18/24 08:47 Vitals Last Vital Signs Temp 98.2 F 09/18/24 11:05 Pulse 93 09/18/24 11:05 Resp 26 H 09/18/24 11:05 BP 103/60 09/18/24 11:05 Pulse Ox 97 09/18/24 11:05 O2 Del Method Room Air 09/18/24 08:00 Discharge Plan Discharge Patient Disposition: Xfer SNF Condition: Stable Prescriptions: New pantoprazole [Protonix] 40 mg tablet,delayed release (DR/EC) 40 mg PO BID 30 Days Qty: 60 0RF sucralfate 100 mg/mL Suspension 1 g PO Q12H 30 Days Qty: 600 0RF cefdinir 300 mg capsule 300 mg PO Q12H 7 Days Qty: 14 0RF Continued metoclopramide HCl 5 mg tablet 5 mg PO DAILY lactulose 10 gram/15 mL solution 30 ml PO DAILY PRN (Reason: Constipation) acetaminophen 325 mg capsule 325 mg PO QID PRN (Reason: Pain) bisacodyl 10 mg suppository 10 mg [place] DAILY PRN (Reason: Constipation) tizanidine 2 mg capsule 2 mg PO Q8H PRN (Reason: Muscle Spasm) Dakin's Solution 0.125 % solution 1 applic topical BID Qty: 473 0RF Rx Instructions: Wet to dry dressing changes BID for 3 days w/ dakins atorvastatin 40 mg tablet 40 mg PO DAILY tramadol 50 mg tablet 50 - 100 mg PO Q6H PRN (Reason: Pain) nitroglycerin 0.4 mg tablet, sublingual See Rx Instructions .ROUTE .COMPLEX Rx Instructions: DISSOLVE 1 TABLET UNDER THE TONGUE EVERY 5 MINUTES NEEDED FOR CHEST PAIN. DO NOT EXCEED A TOTAL OF 3 DOSES IN 15 MINUTES. timolol maleate 0.5 % drops 1 drp ophthalmic (eye) QAM ondansetron 4 mg tablet,disintegrating 4 - 8 mg PO Q4H PRN (Reason: Severe nausea/vomiting) atenolol 25 mg tablet 12.5 mg PO DAILY Pro-Stat 101 15-101 gram-kcal/30 mL Liquid See Rx Instructions .ROUTE .COMPLEX Rx Instructions: Give 30 ml by mouth once daily for maintenance. magnesium hydroxide [Milk of Magnesia] 400 mg/5 mL Suspension 30 ml PO DAILY PRN (Reason: Constipation) Fleet Enema 19-7 gram/118 mL Enema 118 ml [place] DAILY PRN (Reason: Constipation) bisacodyl 5 mg Tablet 20 mg PO DAILY MDD if no bm in 3 days PRN (Reason: Constipation) Held aspirin [Aspir-81] 81 mg Tablet,Delayed Release (Dr/Ec) 81 mg PO DAILY Hold Instructions: Resume on 10/16/24. anemia, hold until you see general surgery and have scoping Discontinued pantoprazole [address] for susp in packet 40 mg PO DAILY spironolactone 50 mg tablet 50 mg PO BID Discharge Orders: Discharge Order (Routine); Ordered 09/18/24 Ordered By: Tim Huerta Referrals: Derick Duran MD [Physician, General Surgery] - 1 week Referral Note: egd and colonoscopy Almas Teran MD [Referring, Urology] - 1 week Referral Note: chronic guadalupe Discharge Diet: Cardiac Discharge Activity: Resume usual activity Patient Instructions: Opioid Safety, Patient Portal & Madai Instructions Activity Restrictions/Additional Instructions: - Recheck hemoglobin tomorrow, if hemoglobin less than 7 please bring back to [facility] - Take Protonix, Carafate -Follow-up with general surgery in 1 week for EGD and colonoscopy -Please recheck sodium in 1 week Your Guadalupe catheter is in place, follow-up with urology in 1-month, your Guadalupe catheter has to be changed in 1 month, exchanged, 09/14/2024 - Sacral wound, continue repositioning every 2-3 hours, offloading, wound care Discharge Attestations Time Spent in Discharge Care*: greater than 30 min Quality Metrics Clinical Quality Measures [ No reported AMI, CVA or VTE this stay] Coding Level of Care Code 17484 Total time (in minutes) for Discharge: 45 Diagnoses Hyponatremia E87.1 Nausea and vomiting R11.2 Complicated UTI (urinary tract infection) N39.0 Sacral wound S31.000A
[2024-09-18] MEDS: oxyCODONE-APAP 5-325 mg Tablet 1 TAB PO (14:24)
--- NOTE | 2024-09-18 14:47 | PC.NURSE ---
report called to SNF
--- NOTE | 2024-09-18 16:32 | PC.NURSE ---
holter monitor applied on. waiting for [facility] for transport, they called around 3 pm that they will be here in 2 hours?
--- NOTE | 2024-09-18 17:38 | PC.NURSE ---
[facility] here to [facility] pt called snf and notified them that pt is on her way back to their facility.notified them that pt had a large BM around 3 pm.
== END 2024-09-18 17:36 | disposition skilled nursing facility (03) | DRG 698 ==
LOC: ER 10:16 → ER IP 13:03 → CSU 16:36 → ER IP 19:26
PROVIDERS: Admitting Provider Internal Medicine; Emergency Provider Emergency Medicine; PCP Nurse Practitioner; Visit Provider Family Medicine
DX: T83.511A Infection and inflammatory reaction due to indwelling urethral catheter, initial encounter (principal); L89.154 Pressure ulcer of sacral region, stage 4; E87.1 Hypo-osmolality and hyponatremia; I50.32 Chronic diastolic (congestive) heart failure; G93.49 Other encephalopathy; N39.0 Urinary tract infection, site not specified; B96.4 Proteus (mirabilis) (morganii) as the cause of diseases classified elsewhere; R31.9 Hematuria, unspecified; Y73.8 Miscellaneous gastroenterology and urology devices associated with adverse incidents, not elsewhere classified; R00.1 Bradycardia, unspecified; I11.0 Hypertensive heart disease with heart failure; N32.0 Bladder-neck obstruction; I25.10 Atherosclerotic heart disease of native coronary artery without angina pectoris; E78.5 Hyperlipidemia, unspecified; E86.1 Hypovolemia; E87.5 Hyperkalemia; D64.9 Anemia, unspecified; Z87.891 Personal history of nicotine dependence
CPT/HCPCS: 36415; 36430; 74176; 80048; 80053; 81000; 81001; 82274; 82728; 83540; 83550; 83690; 83880; 84295; 84443; 85025; 86850; 86900; 86920; 87077; 87086; 87184; 87186; 87486; 87581; 87633; 93005; 99285; A9270; G0378; J0612; J1815; J2470; J2543; J7030; J7799; J8597; J9999; P9016

== ENCOUNTER → 2024-09-19 08:45 | Outpatient (BNVA) | payer MEDICARE, SELFPAY | PROVIDERS: PCP Nurse Practitioner; Visit Provider Nurse Practitioner Family | DX: D64.9 Anemia, unspecified (principal) | CPT/HCPCS: 85025 ==